=== PATIENT | female | born 1995 | race Caucasian/White ===

== ENCOUNTER 2019-01-08 07:18 | Emergency (ER) | payer BC ==
[2019-01-08 07:31] VITALS: BP 122/75
--- NOTE | 2019-01-08 07:41 | UC ---
UC General HPI - HPI Summary HPI Summary: Patient c/o two days of aches and pains associated with a headache. Is in finals week at [employer]. Today is her last day and she has two finals and a presentation. She is driving home to [place] tomorrow and her mom wanted her to get checked out before she drives home to [place] tomorrow. No fever. Did not take any medication today. She has been taking ibuprofen that has helped with her symptoms. No N/V/D. No URI symptoms. No urinary symptoms , no polyuria or polydispia. No Tick bites. States it mostly joint aches and not really muscle aches. Meds: reviewed - History of Current Complaint Chief Complaint: UCGeneralIllness Stated Complaint: ACHY MUSCLES HEADACHE EYES Time Seen by Provider: 01/08/19 07:32 Hx Last Menstrual Period: 01/08/19 Pain Intensity: 5 - Allergy/Home Medications Allergies/Adverse Reactions: Allergies Allergy/AdvReac Type Severity Reaction Status Date / Time No Known Allergies Allergy Verified 01/08/19 07:31 Home Medications: Home Medications Control Pill 1 tab PO DAILY 01/08/19 [History Confirmed 01/08/19] Ibuprofen 400 mg PO ONCE PRN 01/08/19 [History Confirmed 01/08/19] PMH/Surg Hx/FS Hx/Imm Hx Previously Healthy: Yes - Surgical History Surgical History: None - Social History Alcohol Use: Rare Substance Use Type: None Smoking Status (MU): Never Smoked Tobacco Review of Systems All Other Systems Reviewed And Are Negative: Yes Constitutional: Positive: Negative Musculoskeletal: Positive: Arthralgia Physical Exam Triage Information Reviewed: Yes Appearance: Well-Appearing Vital Signs: Initial Vital Signs Temp 97.8 F 01/08/19 07:28 Pulse 92 01/08/19 07:28 Resp 18 01/08/19 07:28 BP 122/75 01/08/19 07:28 Pulse Ox 100 01/08/19 07:28 Vital Signs Reviewed: Yes ENT: Positive: Pharyngeal erythema, Other - TM's b/l dull cerumen impaction Neck: Positive: Supple Respiratory: Positive: Lungs clear, Normal breath sounds Cardiovascular: Positive: RRR, No Murmur Abdomen Description: Positive: Nontender, Soft Musculoskeletal: Positive: Strength Intact, Other: - no joint swelling or erythema Skin Exam: Normal Course/Dx - Course Course Of Treatment: This is a 23 yr old who presents with aches and pains Assessment Nontoxic appearing No focal findings on exam Viral syndrome vs stress related due to finals week REturning home to [place] tomorrow Plan Recommend if symptoms persist to follow up with your Primary care provider in [place], recommend screening labs and further work up Continue ibuprofen as needed for aches and pain - take as directed, with food If you develop a fever or worsening symptoms return to urgent care - Diagnoses Provider Diagnosis: Viral syndrome Discharge - Sign-Out/Discharge Documenting (check all that apply): Patient Departure All imaging exams completed and their final reports reviewed: No Studies - Discharge Plan Condition: Good Disposition: HOME Referrals: No Primary Care Phys,NOPCP [Primary Care Provider] - Additional Instructions: Recommend if symptoms persist to follow up with your Primary care provider in [place], recommend screening labs and further work up Continue ibuprofen as needed for aches and pain - take as directed, with food If you develop a fever or worsening symptoms return to urgent care - Billing Disposition and Condition Condition: GOOD Disposition: Home
== END 2019-01-08 07:48 | disposition home or self-care (01) ==
LOC: UCCORT 07:18
DX: B34.9 Viral infection, unspecified (principal); R51 Headache
CPT/HCPCS: 99201; G0463